=== PATIENT | female | born 2005 | race Hispanic/Latino ===

== ENCOUNTER 2025-03-15 09:20 | Emergency (ER) | payer SELFPAY ==
--- NOTE | 2025-03-15 10:10 | EDPHYS ---
Physician Documentation [facility] Name: Nick Cantu Age: 19 yrs Sex: Female : 2005 Arrival Date: 03/15/2025 Time: 09:20 Bed 30 Private MD: ED Physician Pratima Ayoub HPI: 03/15 09:53 This 19 yrs old Female presents to ER via EMS with complaints of Knee Injury. sp3 09:53 19-year-old female with no past medical history presents with right knee pain after sp3 jumping off of a back of a pickup truck while she was helping move furniture. Patient states she landed on it wrong and "felt a pop". She is able to bear weight but states it is painful. She denies any secondary injury, foot pain, hip pain, head injury or full fall. No prior injury or surgical procedures to the right knee. Patient arrived via EMS where she received IV pain medication.. Historical: - Allergies: 09:25 No Known Allergies; ph - PMHx: 09:25 None; ph - Immunization history:: Adult Immunizations unknown. - Infectious Disease History:: Denies. - Social history:: Smoking status: Patient denies any tobacco usage or history of. ROS: 09:55 Constitutional: Negative for fever, chills, and weight loss, Eyes: Negative for injury, sp3 pain, redness, and discharge, ENT: Negative for injury, pain, and discharge, Neck: Negative for injury, pain, and swelling, Cardiovascular: Negative for chest pain, palpitations, and edema, Respiratory: Negative for shortness of breath, cough, wheezing, and pleuritic chest pain, Abdomen/GI: Negative for abdominal pain, nausea, vomiting, diarrhea, and constipation, Back: Negative for injury and pain, Skin: Negative for injury, rash, and discoloration, Neuro: Negative for headache, weakness, numbness, tingling, and seizure, Psych: Negative for depression, anxiety, suicide ideation, homicidal ideation, and hallucinations, Allergy/Immunology: Negative for hives, rash, and allergies, Endocrine: Negative for neck swelling, polydipsia, polyuria, polyphagia, and marked weight changes, Hematologic/Lymphatic: Negative for swollen nodes, abnormal bleeding, and unusual bruising, 09:55 All other systems are negative, Exam: 09:55 Constitutional: This is a well developed, well nourished patient who is awake, alert, sp3 and in no acute distress. Head/Face: Normocephalic, atraumatic. Eyes: Pupils equal round and reactive to light, extra-ocular motions intact. Lids and lashes normal. Conjunctiva and sclera are non-icteric and not injected. Cornea within normal limits. Periorbital areas with no swelling, redness, or edema. Neck: Trachea midline, no thyromegaly or masses palpated, and no cervical lymphadenopathy. Supple, full range of motion without nuchal rigidity, or vertebral point tenderness. No Meningismus. Chest/axilla: Normal chest wall appearance and motion. Nontender with no deformity. No lesions are appreciated. Cardiovascular: Regular rate and rhythm with a normal S1 and S2. No gallops, murmurs, or rubs. Normal PMI, no JVD. No pulse deficits. Respiratory: Lungs have equal breath sounds bilaterally, clear to auscultation and percussion. No rales, rhonchi or wheezes noted. No increased work of breathing, no retractions or nasal flaring. Abdomen/GI: Soft, non-tender, with normal bowel sounds. No distension or tympany. No guarding or rebound. No evidence of tenderness throughout. Skin: Warm, dry with normal turgor. Normal color with no rashes, no lesions, and no evidence of cellulitis. Neuro: Awake and alert, GCS 15, oriented to person, place, time, and situation. Cranial nerves II-XII grossly intact. Motor strength 5/5 in all extremities. Sensory grossly intact. Cerebellar exam normal. Normal gait. Psych: Awake, alert, with orientation to person, place and time. Behavior, mood, and affect are within normal limits. 09:55 Musculoskeletal/extremity: Pain to the medial aspect of the right knee. Mild joint effusion noted. Distal neurovascular exam and foot exam normal. Proximal hip exam normal. No pain on axial load. No drawer laxity noted.. Vital Signs: 09:21 BP 131 / 80; Pulse 105; Resp 18; Temp 97.8; Pulse Ox 98% on R/A; Weight 70.31 kg; ph Height 5 ft. 1 in. ; 10:05 BP 127 / 86; Pulse 91; Resp 18; Pulse Ox 99% on R/A; ph 09:21 Body Mass Index 29.29 (70.31 kg, 154.94 cm) ph MDM: 09:29 Medical Screening Exam initiated sp3 09:55 Data reviewed: vital signs, nurses notes, radiologic studies. ED course: 19-year-old sp3 female with probable internal derangement of right knee. I am not highly suspicious of fracture. Consider joint effusion versus other soft tissue injury. Probable MRI outpatient. Will discharge patient on knee immobilizer and crutches with pain medication orthopedic follow-up, pending x-ray review.. 10:08 ED course: X-rays are normal. Will safely discharge patient home at this time with sp3 orthopedic follow-up.. 03/15 09:41 Order name: Knee Right 3 View XRAY; Complete Time: 10:41 sp3 03/15 10:13 Order name: Knee Immobilizer; Complete Time: 11:06 sp3 03/15 10:13 Order name: Crutches; Complete Time: 11:06 sp3 Administered Medications: No medications were administered Disposition Summary: 03/15/25 10:09 Discharge Ordered Notes: Location: Home sp3 Condition: Stable sp3 Diagnosis - Right knee sprain, internal derangement of the right knee, right knee effusion sp3 Followup: sp3 - With: Private Physician - When: Upon discharge from the Emergency Department - Reason: Continuance of care Followup: sp3 - With: Juadh Gudino MD - When: Upon discharge from the Emergency Department - Reason: Recheck today's complaints Discharge Instructions: - Discharge Summary Sheet sp3 - Crutch Use, Adult sp3 - How to Use a Knee Immobilizer sp3 - Knee Sprain, Adult sp3 Forms: - Family Work Release ph - Medication Reconciliation Form sp3 - Antibiotic Education sp3 - Prescription Opioid Use sp3 - Patient Portal Instructions sp3 - Leadership Thank You Letter sp3 Prescriptions: - Tramadol 50 mg Oral Tablet - take 1 tablet ORAL route every 8 hours as needed; 12 tablet; Refills: 0, sp3 Product Selection Permitted Signatures: Dispatcher [employer] Ny Green RN RN ph Pratima Ayoub MD MD sp3
--- NOTE | 2025-03-15 10:10 | ER ---
Nurse's Notes [facility] Name: Nick Cantu Age: 19 yrs Sex: Female : 2005 Arrival Date: 03/15/2025 Time: 09:20 Bed 30 Private MD: Diagnosis: Right knee sprain, internal derangement of the right knee, right knee effusion Presentation: 03/15 09:21 Chief complaint: EMS states: Injury to R knee when getting out of a truck, states she ph felt a "pop". Coronavirus screen: Vaccine status: Patient reports being unvaccinated. Ebola Screen: No symptoms or risks identified at this time. Initial Sepsis Screen: Does the patient meet any 2 criteria? No. Patient's initial sepsis screen is negative. Does the patient have a suspected source of infection? No. Patient's initial sepsis screen is negative. Risk Assessment: Do you want to hurt yourself or someone else? Patient reports no desire to harm self or others. Onset of symptoms was March 15, 2025. 09:21 Method Of Arrival: EMS: [facility] 09:21 Acuity: INDRA 4 ph Triage Assessment: :25 General: Appears in no apparent distress. uncomfortable, Behavior is calm, cooperative. ph Pain: Complains of pain in right knee. Neuro: Level of Consciousness is awake, alert, obeys commands, Oriented to person, place, time, situation. Cardiovascular: Capillary refill < 3 seconds in bilateral fingers Patient's skin is warm and dry. Pulses are palpable in right dorsalis pedis artery and left dorsalis pedis artery. Respiratory: Airway is patent Respiratory effort is even, unlabored, Respiratory pattern is regular, symmetrical. Derm: Skin is pink, warm \\T\\ dry. Musculoskeletal: Swelling present in right knee. Historical: - Allergies: 09:25 No Known Allergies; ph - PMHx: 09:25 None; ph - Immunization history:: Adult Immunizations unknown. - Infectious Disease History:: Denies. - Social history:: Smoking status: Patient denies any tobacco usage or history of. Screenin:28 [facility] ED Fall Risk Assessment (Adult) History of falling in the last 3 months, ph including since admission Yes- single mechanical fall (1 pt) Confusion or Disorientation No (0 pts) Intoxicated or Sedated No (0 pts) Impaired Gait No (0 pts) Mobility Assist Device Used No (0 pt) Altered Elimination No (0 pt) Score/Fall Risk Level 0 - 2 = Low Risk Oriented to surroundings, Maintained a safe environment, Hourly rounding (assess needs \\T\\ fall precautionary measures) done. Abuse screen: Denies threats or abuse. Denies injuries from another. Nutritional screening: No deficits noted. Tuberculosis screening: No symptoms or risk factors identified. Assessment: 10:17 General: SEE TRIAGE ASSESSMENT. ph Vital Signs: 09:21 BP 131 / 80; Pulse 105; Resp 18; Temp 97.8; Pulse Ox 98% on R/A; Weight 70.31 kg; ph Height 5 ft. 1 in. ; 10:05 BP 127 / 86; Pulse 91; Resp 18; Pulse Ox 99% on R/A; ph 09:21 Body Mass Index 29.29 (70.31 kg, 154.94 cm) ph ED Course: 09:20 Patient arrived in ED. ph 09:21 Pratima Ayoub MD is Attending Physician. sp3 09:25 Triage completed. ph 09:25 Arm band placed on Patient placed in an exam room, on a stretcher. ph 09:28 Patient has correct armband on for positive identification. Bed in low position. Call ph light in reach. Side rails up X 1. Pulse ox on. NIBP on. 09:44 Ny Luna, RN is Primary Nurse. ph 10:11 Judah Gudino MD is Referral Physician. sp3 10:14 Knee Right 3 View XRAY In Process Unspecified. EDMS 11:06 No provider procedures requiring assistance completed. IV discontinued, intact, ph bleeding controlled, No redness/swelling at site. Pressure dressing applied. 11:07 Crutch training done. Knee immobilizer applied on right knee. ph Administered Medications: No medications were administered Medication: 09:28 VIS not applicable for this client. ph Outcome: 10:09 Discharge ordered by . sp3 11:07 Discharged to home with crutches, with significant other, ph 11:07 Condition: good 11:07 Discharge instructions given to patient, Instructed on discharge instructions, follow ph up and referral plans. medication usage, crutch walking, Demonstrated understanding of instructions, follow-up care, medications, crutch walking, Prescriptions given X 1, 11:07 Patient left the ED. aa5 Signatures: Dispatcher [employer] Miesha Bridges RN RN aa5 Ny Luna RN RN ph Pratima Ayoub MD MD sp3
--- NOTE | 2025-03-15 10:38 | RAD REPORT ---
EXAM: XR Knee Right 3 View HISTORY: trauma COMPARISON: None TECHNIQUE: 3 views of the right knee were obtained. FINDINGS: No knee effusion is seen. There is no evidence of acute fracture or dislocation. No signif icant degenerative changes are seen. No soft tissue swelling or other soft tissue abnormality is present. IMPRESSION: No evidence of acute osseous abnormality.
[2025-03-15 11:16] VITALS: BP 131/80; TEMP 97.8; O2SAT 98
== END 2025-03-15 11:07 | disposition home or self-care (01) ==
LOC: ER 09:20
DX: S83.91XA Sprain of unspecified site of right knee, initial encounter (principal); M23.91 Unspecified internal derangement of right knee; M25.461 Effusion, right knee; M25.561 Pain in right knee